=== PATIENT | male | born 1990 | race American Indian/Alaskan Native ===

== ENCOUNTER 2022-02-17 20:57 | Emergency (ER) | payer OTHER ==
--- NOTE | 2022-02-17 22:15 | XRay Report ---
RIGHT ANKLE 3 VIEWS INDICATION / CLINICAL INFORMATION: Right ankle injury after fall. COMPARISON: None available. FINDINGS: BONES and JOINT(S): There is an acute oblique fracture through the talar neck. No dislocation. No sig nificant arthritis. SOFT TISSUES: There is mild/moderate generalized edema. ADDITIONAL FINDINGS: None. IMPRESSION: Acute right talar fracture. Signer Name: Deng Vicente MD Signed: 02/17/2022 10:10 PM Workstation Name: [id number]
--- NOTE | 2022-02-17 22:38 | XRay Report ---
RIGHT KNEE 4 VIEWS INDICATION / CLINICAL INFORMATION: Right knee injury after fall from ladder. COMPARISON: None available. FINDINGS: BONES and JOINT(S): There is an acute mildly displaced transverse fracture through the middle third o f the patella. No dislocation. No significant arthritis. SOFT TISSUES: There is mild generalized edema with a small joint effusion. ADDITIONAL FINDINGS: None. IMPRESSION: 1. Acute right patellar fracture. Signer Name: Deng Vicente MD Signed: 02/17/2022 10:34 PM Workstation Name: [id number]
[2022-02-18 00:21] VITALS: BP 150/91
[2022-02-18] MEDS ORDERED: HYDROmorphone 1 MG/1 ML INJ IV ONE (01:03)
[2022-02-18] MEDS ORDERED: ONDANSETRON 4 MG/2 ML INJ IV STA (01:03)
--- NOTE | 2022-02-18 03:34 | Emergency Department Report ---
ED Fall HPI - General Chief Complaint: Extremity Injury, Lower Stated Complaint: RT LEG INJURY Time Seen by Provider: 02/17/22 23:01 Source: patient, EMS Mode of arrival: Stretcher - History of Present Illness Initial Comments: 32-year-old male was on a ladder doing some work when he lost his balance fell off and struck his knee against the concrete during the fall. Reports dull throbbing pain which is worse with palpation and range of motion also pain to the ankle follows well. -: Gradual Fall From: from height (distance) (10-12 ft) Place Fall Occurred: home Loss of Consciousness: none Prolonged Down Time?: no Symptoms Prior to Fall: none - Related Data Previous Rx's Medication Instructions Recorded Last Taken Type Oxycodone HCl/Acetaminophen 1 each PO Q6HR PRN #14 02/18/22 Unknown Rx [Percocet 7.5/325 mg] Allergies Allergy/AdvReac Type Severity Reaction Status Date / Time No Known Allergies Allergy Unverified 02/17/22 21:21 ED Review of Systems ROS: Stated complaint: RT LEG INJURY Other details as noted in HPI Comment: All other systems reviewed and negative ED Past Medical Hx - Social History Smoking Status: Never Smoker - Medications Home Medications: Home Medications Medication Instructions Recorded Confirmed Last Taken Type Oxycodone HCl/Acetaminophen 1 each PO Q6HR PRN #14 02/18/22 Unknown Rx [Percocet 7.5/325 mg] ED Physical Exam - General Limitations: No Limitations General appearance: alert, in no apparent distress - Head Head exam: Present: atraumatic, normocephalic - Eye Eye exam: Present: normal appearance - ENT ENT exam: Present: mucous membranes moist - Neck Neck exam: Present: normal inspection - Respiratory Respiratory exam: Present: normal lung sounds bilaterally. Absent: respiratory distress - Cardiovascular Cardiovascular Exam: Present: regular rate, normal rhythm. Absent: systolic murmur, diastolic murmur, rubs, gallop - GI/Abdominal GI/Abdominal exam: Present: soft, normal bowel sounds - Rectal Rectal exam: Present: deferred - Extremities Exam Extremities exam: Present: normal inspection, tenderness - Expanded Lower Extremity Exam Right Knee exam: Present: tenderness, swelling, full knee extension (Significant painful extension). Absent: ecchymosis, deformity, dislocation, erythema Ankle exam: Present: tenderness, swelling, ecchymosis. Absent: abrasion, laceration, crepidus, dislocation, erythema Foot/Toe exam: Present: tenderness. Absent: amputation, puncture wound, foreign body Neuro vascular tendon exam: Present: no vascular compromise - Back Exam Back exam: Present: normal inspection - Neurological Exam Neurological exam: Present: alert, oriented X3 - Psychiatric Psychiatric exam: Present: normal affect, normal mood - Skin Skin exam: Present: warm, dry, intact, normal color. Absent: rash ED Course Vital Signs 02/17/22 02/18/22 21:19 00:19 Temperature 98 F 98.6 F Pulse Rate 92 H 82 Respiratory 16 18 Rate Blood Pressure 150/91 Blood Pressure 128/86 150/91 [Right] O2 Sat by Pulse 97 100 Oximetry - Orthopedic Splinting/Casting Injury #1 Side: right Lower Extremity Injury Location: knee, lower leg Lower Extremity Immobilizer: posterior splint Other Orthopedic Equipment: crutches ED Medical Decision Making - Radiology Data Radiology results: report reviewed [address] [address] XRay Report Signed Patient: KENNEDY LANDAVERDE MR#: [id number] : 1990 Acct:[id number] Age/Sex: 32 / M ADM Date: 02/17/22 Loc: ED Attending Dr: Ordering Physician: SUE FRY MD Date of Service: 02/17/22 Procedure(s): XR ankle 3+V RT Accession Number(s): [id number] cc: ED MD LISANDRA Fluoro Time In Minutes: RIGHT ANKLE 3 VIEWS INDICATION / CLINICAL INFORMATION: Right ankle injury after fall. COMPARISON: None available. FINDINGS: BONES and JOINT(S): There is an acute oblique fracture through the talar neck. No dislocation. No significant arthritis. SOFT TISSUES: There is mild/moderate generalized edema. ADDITIONAL FINDINGS: None. IMPRESSION: Acute right talar fracture. Signer Name: Deng Vicente MD Signed: 02/17/2022 10:10 PM Workstation Name: [id number] Transcribed By: ANTIONE Dictated By: Deng Vicente MD Electronically Authenticated By: Deng Vicente MD Signed Date/Time: 02/17/222209 DD/ 08 TD/TT: [address] [place] [address] XRay Report Signed Patient: KENNEDY LANDAVERDE MR#: [id number] : 1990 Acct:[id number] Age/Sex: 32 / M ADM Date: 02/17/22 Loc: ED Attending Dr: Ordering Physician: SUE FRY MD Date of Service: 02/17/22 Procedure(s): XR knee 4+V RT Accession Number(s): [id number] cc: ED MD LISANDRA Fluoro Time In Minutes: RIGHT KNEE 4 VIEWS INDICATION / CLINICAL INFORMATION: Right knee injury after fall from ladder. COMPARISON: None available. FINDINGS: BONES and JOINT(S): There is an acute mildly displaced transverse fracture through the middle third of the patella. No dislocation. No significant arthritis. SOFT TISSUES: There is mild generalized edema with a small joint effusion. ADDITIONAL FINDINGS: None. IMPRESSION: 1. Acute right patellar fracture. Signer Name: Deng Vicente MD Signed: 02/17/2022 10:34 PM Workstation Name: [id number] Transcribed By: MN Dictated By: Deng Vicente MD Electronically Authenticated By: Deng Vicente MD Signed Date/Time: 02/17/222233 DD/ 32 TD/TT: Critical care attestation.: If time is entered above; I have spent that time in minutes in the direct care of this critically ill patient, excluding procedure time. ED Disposition Clinical Impression: Fracture of right patella, Closed fracture of right distal fibula Disposition: HOME / SELF CARE / HOMELESS Is pt being admited?: No Does the pt Need Aspirin: No Condition: Stable Instructions: Nondisplaced Fibular Ankle Fracture Treated With Immobilization, Adult, Patellar Fracture Rehab-SportsMed, Cast or Splint Care, Adult, [id number] Prescriptions: Oxycodone HCl/Acetaminophen [Percocet 7.5/325 mg] 1 each PO Q6HR PRN #14 PRN Reason: Pain Referrals: [facility] [Provider Group] - 3-5 Days
== END 2022-02-18 04:28 | disposition home or self-care (01) ==
LOC: ED 20:57
DX: S82.001A Unspecified fracture of right patella, initial encounter for closed fracture (principal); S82.401A Unspecified fracture of shaft of right fibula, initial encounter for closed fracture; W19.XXXA Unspecified fall, initial encounter; Y93.89 Activity, other specified; Y92.89 Other specified places as the place of occurrence of the external cause; Y99.8 Other external cause status
CPT/HCPCS: 29505; 73564; 73610; 96374; 96375; 99284; J1170; J2405